=== PATIENT | female | born 1995 | race Caucasian/White ===

== ENCOUNTER 2020-12-03 16:25 | Emergency (ER) | payer OTHER ==
[~2020-12-03] VITALS: Ht 172.7 cm; Wt 59.0 kg
== END 2020-12-03 18:45 | disposition home or self-care (01) ==
LOC: ER 16:25
DX: S14.3XXA Injury of brachial plexus, initial encounter (principal); W22.8XXA Striking against or struck by other objects, initial encounter; Y93.89 Activity, other specified
CPT/HCPCS: 73090; 96374; 99283-25; J1885